=== PATIENT | female | born 1990 | race American Indian/Alaskan Native ===

== ENCOUNTER 2019-10-07 09:15 | Outpatient (CLI) | payer OTHER ==
[2019-10-07 10:41] LABS: Free T4 (Free Thyroxine) 0.96 ng/dL (0.76-1.46)
--- NOTE | 2019-10-07 11:52 | Ultrasound Report ---
ULTRASOUND THYROID INDICATION / CLINICAL INFORMATION: Thyroiditis, enlarged thyroid. COMPARISON: None available. FINDINGS: RIGHT LOBE: Size = 7.7 x 4.5 x 3.8 cm. - Echogenicity: Mildly heterogenous - Vascularity: Normal. - Nodules < 1 cm: None. - Nodules >= 1 cm or Suspicious Nodules: 1 - There is a 6.2 x 3.4 x 4.7 cm complex cystic and solid mass located within the right mid and inferi or thyroid. The inferior extent appears to demonstrate solid component and sampling of this solid por tion is recommended. No associated calcifications. The appearance equates to a T4 TI-RADS score LEFT LOBE: Size = 6.5 x 1.4 x 1.9 cm. - Echogenicity: Normal. - Vascularity: Normal. - Nodules < 1 cm: None. - Nodules >= 1 cm or Suspicious Nodules: 2 -There is a 1.8 x 0.9 x 1 cm primarily hypoechoic solid nodule within the inferior left thyroid lobe. No associated calcifications. The appearance equates to a T4 TI-RADS score. -There is a 1.1 x 0.4 x 0.8 cm spongiform nodule within the left mid thyroid. No associated calcifica tions. The appearance equates to a TR2 Ti-RADS score. ISTHMUS: No significant abnormality. Thickness = 0.4 cm. - Nodules < 1 cm: None. - Nodules >= 1 cm or Suspicious Nodules: None. LYMPH NODES: No abnormal lymph nodes. PARATHYROID GLANDS: No abnormal parathyroid gland. ADDITIONAL FINDINGS: None. IMPRESSION: 1. Complex cystic and solid nodule within the right mid and inferior thyroid meets criteria for ultra sound-guided fine-needle aspiration with a target being the posterior solid component. 2. A solid nodule within the inferior left thyroid meets criteria for ultrasound-guided fine-needle a spiration. Note: Nodule size based on mean (average) size of 3 dimensions. Note: Nodules < 1 cm do not typically require follow-up or FNA unless there are suspicious features ( AMANDA, 2015) ACR TI-RADS Thyroid Nodule Recommendations TI-RADS 1 (0 points) -- Benign. No FNA or follow-up. TI-RADS 2 (1-2 points) -- Not suspicious. No FNA or follow-up. TI-RADS 3 (3 points) -- Mildly suspicious. Follow up in 1 year if 1.5 cm. FNA if 2.5 cm. TI-RADS 4 (4-6 points) -- Moderately suspicious. Follow up in 1 year if 1.0 cm. FNA if 1.5 cm. TI-RADS 5 (7+ points) -- Highly suspicious. Follow up in 1 year if 0.5 cm. FNA if 1.0 cm. Signer Name: Wu Fonseca MD Signed: 10/07/2019 11:48 AM Workstation Name: [id number]
== END 2019-10-07 09:16 | disposition home or self-care (01) ==
LOC: US 09:15
PROVIDERS: ATTEND Otolaryngology
DX: E06.9 Thyroiditis, unspecified (principal)
CPT/HCPCS: 36415; 76536; 84439; 84443; 84479